=== PATIENT | male | born 1960 | race Caucasian/White ===

== ENCOUNTER 2020-01-14 10:10 | Outpatient (CLI) | payer BC, SELFPAY ==
--- NOTE | ~2020-01-14 | XR_ITS ---
EXAMINATION: HAND-FREDY ARTHRITIS 3+VIEWS DATE: 01/14/2020 10:28 INDICATION: Hand pain TECHNIQUE: Posteroanterior, lateral, and oblique views of the left and of the right hands as well as a ballcatchers view of both hands were obtained. COMPARISON: None. FINDINGS: There is moderate osteoarthritis at the left triscaphe, the first carpometacarpal, first metacarpopha langeal, and third metacarpophalangeal joints. Mild osteoarthritis is noted in multiple additional le ft interphalangeal joints. There is moderate osteoarthritis at the right triscaphe, first carpometaca rpal, first metacarpophalangeal, second metacarpophalangeal, and third metacarpophalangeal joints. Th ere is no fracture. The soft tissues are unremarkable. IMPRESSION: 1. Polyarticular osteoarthritis as detailed above without acute findings. Reviewed, dictated and finalized at location A.
== END 2020-01-14 10:11 | disposition home or self-care (01) ==
LOC: ANHIMG 10:16
PROVIDERS: PCP Internal Medicine; Visit Provider Surgery Plastic and Reconstructive Surgery
DX: M79.641 Pain in right hand (principal); M79.642 Pain in left hand; M19.042 Primary osteoarthritis, left hand; M19.041 Primary osteoarthritis, right hand
CPT/HCPCS: 73130

== ENCOUNTER 2020-02-11 07:59 | Outpatient (CLI) | payer BC, SELFPAY ==
[2020-02-11 08:43] LABS: Alanine Aminotransferase 36 U/L (4-50); Albumin Level 4.6 g/dL (3.5-5.1); Alkaline Phosphatase 69 U/L (38-126); Amylase 84 U/L (30-110); Aspartate Amino Transferase 37 U/L (17-59); Bilirubin,Total 0.7 mg/dL (0.2-1.3); Lipase 164 U/L (23-300)
== END 2020-02-11 08:00 | disposition home or self-care (01) ==
LOC: ANHSURGERY 08:02
PROVIDERS: PCP Internal Medicine; Visit Provider Surgery
DX: Z01.812 Encounter for preprocedural laboratory examination (principal); K80.20 Calculus of gallbladder without cholecystitis without obstruction
CPT/HCPCS: 36415; 80076; 82150; 83690; 86850; 86900; 86901

== ENCOUNTER 2020-02-11 09:49 | Outpatient (CLI) | payer BC, SELFPAY ==
--- NOTE | 2020-02-11 11:15 | NEURO_ITS ---
Patient Number: [id number] Impression: # Complains of numbness of both hands. # Right Carpal Tunnel Syndrome. # Bilateral ulnar neuropathy across the elbows, right more than left. # Normal needle/EMG exam. Nerve Conduction Studies Anti Sensory Summary Table Stim Site NR Peak (ms) P-T Amp (?V) Site1 Site2 Delta-P (ms) Dist (cm) Philip (m/s) Left Median Anti Sensory (2-3nd Digit) Wrist 3.6 22.4 Wrist 2-3nd Digit 3.6 14.0 39 Wrist 3.7 27.4 Wrist 2-3nd Digit 3.6 14.0 39 Right Median Anti Sensory (2-3nd Digit) Wrist 4.2 7.5 Wrist 2-3nd Digit 4.2 14.0 33 Wrist 4.2 10.3 Wrist 2-3nd Digit 4.2 14.0 33 Left Radial Anti Sensory (Base 1st Digit) Wrist 2.2 6.6 Wrist Base 1st Digit 2.2 0.0 Right Radial Anti Sensory (Base 1st Digit) Wrist 2.6 8.8 Wrist Base 1st Digit 2.6 0.0 Left Ulnar Anti Sensory (5th Digit) Wrist 2.8 5.7 Wrist 5th Digit 2.8 14.0 50 Right Ulnar Anti Sensory (5th Digit) Wrist 2.9 27.2 Wrist 5th Digit 2.9 14.0 48 Motor Summary Table Stim Site NR Onset (ms) O-P Amp (mV) Site1 Site2 Delta-0 (ms) Dist (cm) Philip (m/s) Left Median Motor (Abd Poll Brev) Wrist 3.8 3.6 Elbow Wrist 6.0 33.0 55 Elbow 9.8 3.4 Right Median Motor (Abd Poll Brev) Wrist 4.9 1.4 Elbow Wrist 5.8 32.0 55 Elbow 10.7 1.7 Left Ulnar Motor (Abd Dig Minimi) Wrist 3.1 5.0 A Elbow Wrist 6.8 32.0 47 A Elbow 9.9 4.9 B Elbow Wrist 4.2 25.0 60 B Elbow 7.3 5.0 Right Ulnar Motor (Abd Dig Minimi) Wrist 2.9 5.9 A Elbow Wrist 6.9 32.0 46 A Elbow 9.8 3.4 B Elbow Wrist 4.7 23.0 49 B Elbow 7.6 3.5 F Wave Studies NR F-Lat (ms) L-R F-Lat (ms) Left Median (Mrkrs) (Abd Poll Brev) 32.63 0.07 Right Median (Mrkrs) (Abd Poll Brev) 32.56 0.07 Left Ulnar (Mrkrs) (Abd Dig Min) 33.84 1.78 Right Ulnar (Mrkrs) (Abd Dig Min) 32.06 1.78 EMG Side Muscle Nerve Root Ins Act Fibs Amp Dur Recrt Comment Right 1stDorInt Ulnar C8-T1 Nml Nml Nml Nml Nml Right Ext Indicis Radial (Post Int) C7-8 Nml Nml Nml Nml Nml Right Ext Digitorum Radial (Post Int) C7-8 Nml Nml Nml Nml Nml Right BrachioRad Radial C5-6 Nml Nml Nml Nml Nml Right PronatorTeres Median C6-7 Nml Nml Nml Nml Nml Right Abd Poll Brev Median C8-T1 Nml Nml Nml Nml Nml Left 1stDorInt Ulnar C8-T1 Nml Nml Nml Nml Nml Left Ext Indicis Radial (Post Int) C7-8 Nml Nml Nml Nml Nml Left Ext Digitorum Radial (Post Int) C7-8 Nml Nml Nml Nml Nml Left BrachioRad Radial C5-6 Nml Nml Nml Nml Nml Left PronatorTeres Median C6-7 Nml Nml Nml Nml Nml Left Abd Poll Brev Median C8-T1 Nml Nml Nml Nml Nml Right ABD Dig Min Ulnar C8-T1 Nml Nml Nml Nml Nml Left ABD Dig Min Ulnar C8-T1 Nml Nml Nml Nml Nml MTDD
== END 2020-02-11 09:50 | disposition home or self-care (01) ==
PROVIDERS: PCP Internal Medicine; Visit Provider Surgery Plastic and Reconstructive Surgery
DX: R20.0 Anesthesia of skin (principal); G56.01 Carpal tunnel syndrome, right upper limb; G56.23 Lesion of ulnar nerve, bilateral upper limbs
CPT/HCPCS: 95886; 95911

== ENCOUNTER 2020-02-15 00:25 | Outpatient (CLI) | payer BC, SELFPAY ==
[2020-02-15 16:46] LABS: SARS-CoV-2 RNA PCR Negative
== END 2020-02-15 00:26 | disposition home or self-care (01) ==
LOC: ANHCOVIDDT 00:26
PROVIDERS: PCP Internal Medicine; Visit Provider Surgery
DX: Z01.818 Encounter for other preprocedural examination (principal); Z11.59 Encounter for screening for other viral diseases; K80.20 Calculus of gallbladder without cholecystitis without obstruction
CPT/HCPCS: 87635; C9803; U0003

== ENCOUNTER 2020-02-18 00:44 | Day surgery (SDC) | payer BC, SELFPAY ==
[2020-02-10 15:38] VITALS: BMI 45.3
[2020-02-18] VITALS (9 sets, daily range): BP systolic 133–150; BP diastolic 57–71; PULSE 62–80; RESP 14–21; TEMP 35.9–36.8; O2SAT 90–97
[2020-02-18] MEDS: LACTATED RINGERS 1,000 ML 30 ML IV CONT ×2 (11:01→12:48)
--- NOTE | 2020-02-18 11:23 | WPDANESEPPF ---
Anes - Initial Pre Proc Eval Procedure: Operation Date: 02/18/20 12:30 Proposed Procedures p Laparoscopic Cholecystectomy, Possible Open - Catalino Coates DO Date/Time: 02/18/20 11:23 Surgeon: Catalino Coates DO Pre Op Diagnosis: symptomatic cholelithiasis Patient Data Age: 59 Gender: M Height: 5 ft 11 in Weight: 146.5 kg Allergies Allergy/AdvReac Type Severity Reaction Status Date / Time bismuth subsalicylate Allergy Intermediate Rash Verified 02/18/20 10:44 NSAIDS (Non-Steroidal Allergy Intermediate Rash Verified 02/18/20 10:44 Anti-Inflamma aspirin Allergy Unknown Hives Verified 02/18/20 10:44 codeine Allergy Unknown Hives Verified 02/18/20 10:44 Home Medications Medication Instructions Recorded Confirmed Type diclofenac sodium 75 mg 75 mg PO BID 12/03/19 02/18/20 History tablet,delayed release omeprazole 40 mg capsule,delayed 40 mg PO DAILY 12/03/19 02/18/20 History release tramadol 50 mg tablet 50 mg PO Q8H PRN #90 tablet 12/31/19 02/18/20 Rx lisinopril 20 mg PO DAILY 02/10/20 02/18/20 History temazepam 30 mg PO HS PRN 02/10/20 02/18/20 History Patient hx anesthesia problems: none Family hx anesthesia problems: none PMFSH Past Medical History Medical History Diabetes GERD (gastroesophageal reflux disease) High cholesterol HTN (hypertension) Surgical History Surgical History History of bunionectomy Family History Family History Father COPD (chronic obstructive pulmonary disease) Heart attack Mother Family history of elevated blood lipids Social History Social History Smoking status: Former smoker Alcohol intake: current Substance use: never 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 Questions were solicited and answers provided to the satisfaction of the patient/family/POA.
--- NOTE | 2020-02-18 11:32 | PM.IMHP ---
H&P: HPI History of Present Illness Chief complaint: symptomatic cholelithiasis Narrative: Cristóbal Hernandez is a 59 year old male who presents with intermittent RUQ pain for the past 6-8 months. He has had a couple severe attacks of pain. Prior CT and u/s showed evidence of cholelithiasis. He now presents for elective lap ashly. 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 Gender identity (if verbalized by the patient): Male Meds Home Medications and Allergies Home Medications Medication Instructions Recorded Confirmed Type diclofenac sodium 75 mg 75 mg PO BID 12/03/19 02/18/20 History tablet,delayed release omeprazole 40 mg capsule,delayed 40 mg PO DAILY 12/03/19 02/18/20 History release tramadol 50 mg tablet 50 mg PO Q8H PRN #90 tablet 12/31/19 02/18/20 Rx lisinopril 20 mg PO DAILY 02/10/20 02/18/20 History temazepam 30 mg PO HS PRN 02/10/20 02/18/20 History Allergies Allergy/AdvReac Type Severity Reaction Status Date / Time bismuth subsalicylate Allergy Intermediate Rash Verified 02/18/20 10:44 NSAIDS (Non-Steroidal Allergy Intermediate Rash Verified 02/18/20 10:44 Anti-Inflamma aspirin Allergy Unknown Hives Verified 02/18/20 10:44 codeine Allergy Unknown Hives Verified 02/18/20 10:44 Vital Signs Vital Signs - 24 hr 02/18/20 11:28 Temperature 36.8 C Pulse Rate 80 Respiratory Rate 18 Blood Pressure 133/57 L Pulse Oximetry 97 Exam Const: General: no acute distress and alert Orientation/consciousness: patient oriented x3 HENMT: Head: normocephalic and atraumatic Ears: hearing grossly normal bilaterally General nose exam: Normal nares present Mouth: Yes Normal oral and palatal mucosa present Eyes: Periorbital: periorbital findings normal Sclera: sclerae normal EOM: EOMs intact bilaterally Neck: Neck: normal visual inspection, no lymphadenopathy and trachea midline Chest: Chest palpation & inspection: normal inspection of the chest Resp: Effort & Inspection: normal respiratory effort Auscultation: clear to auscultation bilaterally Cardio: Jugular venous distension: no JVD Rate: regular rate Rhythm: regular rhythm Heart sounds: S1 normal heart sound present and S2 normal heart sound present Peripheral pulses: Peripheral pulses 2+ throughout GI: Inspection: normal to inspection GI Palp: Yes Soft to palpation, No Tenderness to palpation present (GI), No Guarding due to palpation present (GI) and No Rebound tenderness present Percussion: Yes normal to percussion Auscultation: normal bowel sounds : General: Yes no CVA tenderness Back/Spine/Pelvis: Back: no CVA tenderness Neuro: General: patient oriented x3, no focal motor deficits and CN's II-XI intact bilaterally Cognition (Neuro): normal cognition Speech: normal speech Motor exam (neuro): 5/5 motor strength present throughout Extrem: General: capillary refill normal and no clubbing, cyanosis or edema Assessment and Plan Assessment and plan (1) Symptomatic cholelithiasis: Code(s): K80.20 - Calculus of gallbladder without cholecystitis without obstruction Status: Acute Assessment and Plan: I have recom
[2020-02-18] MEDS: ceFAZolin 3 GM/D5W 100 ML 100 ML IVPB (11:37)
[2020-02-18] MEDS: BUPIVACAINE/EPINEPHRINE 0.5% 30 ML VIAL INFILTRATE (12:01)
--- NOTE | 2020-02-18 12:54 | PM.PROC ---
Procedure Note - Detailed Date of procedure: 02/18/20 Pre-op diagnosis: symptomatic cholelithiasis Post-op diagnosis: same Procedure performed: Laparoscopic Cholecystectomy Description of procedure: Procedure as well as risks, benefits, and alternatives were discussed with patient. Written consent was obtained and placed in chart prior to procedure. The patient was brought back to surgical suite. Patient was placed in supine position on operating table. Time-out was done to confirm patient and procedure. Patient was then intubated by the anesthesia department. Abdomen was prepped and draped in sterile fashion using chlorhexidine prep. 0.5% bupivacaine with epinephrine was infiltrated at each site of incision. A 5 millimeter incision was made near the umbilicus, and a 5 millimeter Optiview trocar was advanced through the abdominal layers under direct visualization. Once inside the abdominal cavity, carbon dioxide was insufflated to create a pneumoperitoneum. The camera was inserted and the abdomen was inspected. No immediate abnormalities were identified. The patient was placed in reverse Trendelenburg position and rotated slightly to the left. An 11 millimeter incision was made in the subxiphoid region, and an 11 millimeter trocar was inserted under direct visualization. Two 5 millimeter incisions were made in the right upper quadrant, and two 5 millimeter trocars were inserted under direct visualization. The gallbladder was identified and grasped at the fundus and retracted superiorly. It was then grasped at the infundibulum retracted laterally. Careful dissection around the neck of the gallbladder was performed using blunt dissection with a [place] grasper and hook electrocautery. The cystic duct was identified, and a window was created behind it. The cystic artery was also identified and a window was created behind it. The critical view of safety was identified, visualizing the cystic duct running directly into the neck of the gallbladder, and the cystic artery running directly into the wall of the gallbladder. A 5 millimeter clip revenue officer was then used to place 2 clips proximally and 1 clip distally on both the cystic duct and cystic artery. They were then both transected using endoscopic scissors. Once safely away from the jackelin hepatitis, the gallbladder was dissected free from the liver bed using hook electrocautery. Hemostasis was achieved along the way. The gallbladder was removed completely and then removed through the subxiphoid port. The liver bed was then inspected. Hemostasis appeared adequate, and our clips appeared secure. The area was gently irrigated with sterile saline. No other abnormalities were seen. The patient was flattened out in bed, and 1 final inspection was made around the abdominal cavity. The subxiphoid port was removed, and a Dante Chacho cone was used to approximate the fascia with an 0-Vicryl simple interrupted suture. The remaining ports were then removed under direct visualization, the camera was removed, and the pneumoperitoneum was released. The skin of the incisions was approximated using 4-0 Monocryl subcuticular sutures. Exofin glue was applied on top. The patient was then awakened from anesthesia, extubated, and transferred to recovery. Anesthesia: GETA and local (0.5% bupivicaine with epi) Surgeon: Catalino Coates DO Estimated blood loss (mL): 10 Drains: No Packing: No Pathology: yes Complications: No immediate complications Condition: stable (Patient tolerated procedure well, and is currently resting comfortably in recovery.) Disposition: same day Findings: Cristóbal is a 59 y/o male who presents with upper abdominal pain. He reports experiencing 3 episodes of gallbladder attacks within the last 8 months or so. He states his pain is mostly across his upper abdomen and epigastric area. He presented to [facility] ER on 11/21/19 with severe abdominal pain and nausea. Labs were drawn and showed a normal WBC.
== END 2020-02-18 14:52 | disposition home or self-care (01) ==
PROVIDERS: PCP Internal Medicine; Visit Provider Surgery
PROC: 0FT44ZZ Resection of Gallbladder, Percutaneous Endoscopic Approach (ICD-10-PCS; CPT 47562; principal; 2020-02-18 12:30)
DX: K81.1 Chronic cholecystitis (principal); I10 Essential (primary) hypertension; E78.00 Pure hypercholesterolemia, unspecified; E11.9 Type 2 diabetes mellitus without complications; K21.9 Gastro-esophageal reflux disease without esophagitis; E66.01 Morbid (severe) obesity due to excess calories; Z68.42 Body mass index [BMI] 45.0-49.9, adult
CPT/HCPCS: 47562; 88304; J0131; J0690; J1100; J2250; J2405; J2704; J2710; J3010; J7030; J7120

== ENCOUNTER → 2021-09-21 02:27 | Outpatient (CLI) | payer BC, SELFPAY ==
[2021-09-21 18:03] LABS: Influenza Control Positive
[2021-09-22 03:58] LABS: SARS-CoV-2 RNA PCR Negative
== END ==
PROVIDERS: PCP Internal Medicine; Visit Provider Nurse Practitioner
DX: R68.89 Other general symptoms and signs (principal); Z20.822 Contact with and (suspected) exposure to COVID-19
CPT/HCPCS: 87804; C9803; U0003; U0005

== ENCOUNTER 2024-07-30 00:54 | Day surgery (SDC) | payer OTHER, SELFPAY ==
[2024-07-23 10:36] VITALS: BMI 42.7
[2024-07-30 09:28] VITALS: BP 149/82; PULSE 73; RESP 18; TEMP 36.1; O2SAT 97
[2024-07-30] MEDS: LACTATED RINGERS 1,000 ML 150 ML IV CONT (09:38)
--- NOTE | 2024-07-30 09:41 | WPDANESEPPF ---
Anes - Initial Pre Proc Eval Procedure: Operation Date: 07/30/24 10:30 Proposed Procedures p Screening Colonoscopy - Stan Velasco MD Date/Time: 07/30/24 09:41 Surgeon: Stan Velasco MD Pre Op Diagnosis: neoplasm screening Patient Data Age: 64 Gender: M Height: 1.78 m Weight: 132 kg Last Vital Signs Temp 36.1 C L 07/30/24 09:28 Pulse 73 07/30/24 09:28 Resp 18 07/30/24 09:28 BP 149/82 H 07/30/24 09:28 Pulse Ox 97 07/30/24 09:28 O2 Del Method Room Air 07/30/24 09:28 Allergies Allergy/AdvReac Type Severity Reaction Status Date / Time aspirin Allergy Severe Hives Verified 07/30/24 09:27 codeine Allergy Severe Hives Verified 07/30/24 09:27 Home Medications Medication Instructions Recorded Confirmed Type icosapent ethyl 1 gram capsule 2 g PO BID #360 caps 02/02/22 07/30/24 Rx (Vascepa) lisinopril 20 mg tablet See Rx Instructions .Route 09/27/23 07/30/24 Rx .COMPLEX #90 tabs temazepam 30 mg capsule 30 mg PO QHS PRN sleep #30 caps 01/12/24 07/30/24 Rx fenofibrate nanocrystallized 145 145 mg PO DAILY #90 tabs 06/24/24 07/30/24 Rx mg tablet omeprazole 40 mg capsule,delayed See Rx Instructions .Route 06/24/24 07/30/24 Rx release .COMPLEX #90 caps montelukast 10 mg tablet 10 mg PO DAILY #90 tabs 07/01/24 07/30/24 Rx (Singulair) celecoxib 200 mg capsule See Rx Instructions .Route 07/15/24 07/30/24 Rx .COMPLEX #60 caps Patient hx anesthesia problems: none Family hx anesthesia problems: none Results Review: All pre-operative results and documents have been reviewed as part of the pre-operative evaluation. [facility] Past Medical History Medical History (Updated 07/29/24 @ 14:06 by Berny Orozco DO) BMI 45.0-49.9, adult Degenerative arthritis of knee, bilateral Diabetes GERD (gastroesophageal reflux disease) High cholesterol HTN (hypertension) GER (obstructive sleep apnea) Surgical History Surgical History History of bunionectomy Hx laparoscopic cholecystectomy 02/18/20 Family History Family History Father COPD (chronic obstructive pulmonary disease) Heart attack Mother Family history of elevated blood lipids Social History Social History Smoking packs per day: 2 Smoking cigarettes per day: 40.0 Years smoked: 29 Smoking pack-years: 58.00 Smoking status: Former smoker Tobacco type: cigarettes Second hand tobacco smoke exposure: Yes Smoking end date: 04/04/01 Alcohol intake: current Drinks per week: 4 Alcohol use details: beer Substance use: current Substance use type: marijuana Lack of Transportation: No Lack of Food: Never True Current Housing: I Have Housing Concerned About Future Housing: No Difficulty Paying Gas/Electric Bills: No Difficulty Paying for Meds: No Currently Unemployed: No Education: High School Diploma/GED Difficulty w/ Childcare or Family Care: No Living arrangements: with family Occupation/Education: occupation 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 Informed Consent: The patient's anesthetic plan and its attendant risks and benefits were discussed with the patient/family/POA. Questions were solicited and answers provided to the satisfaction of the patient/family/POA.
--- NOTE | 2024-07-30 10:03 | PM.HPGS ---
History of Present Illness History of Present Illness Consent: Risks, benefits, and alternatives have been discussed and questions answered. Patient agrees to proceed with procedure. Chief complaint: neoplasm screening Narrative: Cristóbal Hernandez is a 64 year old male here for screening colonoscopy, last one years ago Review of Systems Review of Systems: All systems reviewed & are unremarkable except as noted in HPI and below PMFSH Past Medical History Medical History (Updated 07/29/24 @ 14:06 by Berny Orozco DO) BMI 45.0-49.9, adult Degenerative arthritis of knee, bilateral Diabetes GERD (gastroesophageal reflux disease) High cholesterol HTN (hypertension) GER (obstructive sleep apnea) Surgical History Surgical History History of bunionectomy Hx laparoscopic cholecystectomy 02/18/20 Family History Family History Father COPD (chronic obstructive pulmonary disease) Heart attack Mother Family history of elevated blood lipids Social History Social History Smoking packs per day: 2 Smoking cigarettes per day: 40.0 Years smoked: 29 Smoking pack-years: 58.00 Smoking status: Former smoker Tobacco type: cigarettes Second hand tobacco smoke exposure: Yes Smoking end date: 04/04/01 Alcohol intake: current Drinks per week: 4 Alcohol use details: beer Substance use: current Substance use type: marijuana Lack of Transportation: No Lack of Food: Never True Current Housing: I Have Housing Concerned About Future Housing: No Difficulty Paying Gas/Electric Bills: No Difficulty Paying for Meds: No Currently Unemployed: No Education: High School Diploma/GED Difficulty w/ Childcare or Family Care: No Living arrangements: with family Occupation/Education: occupation 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 Gender identity (if verbalized by the patient): Male Spiritual care concerns: No Meds Home Medications and Allergies Home Medications Medication Instructions Recorded Confirmed Type icosapent ethyl 1 gram capsule 2 g PO BID #360 caps 02/02/22 07/30/24 Rx (Vascepa) lisinopril 20 mg tablet See Rx Instructions .Route 09/27/23 07/30/24 Rx .COMPLEX #90 tabs temazepam 30 mg capsule 30 mg PO QHS PRN sleep #30 caps 01/12/24 07/30/24 Rx fenofibrate nanocrystallized 145 145 mg PO DAILY #90 tabs 06/24/24 07/30/24 Rx mg tablet omeprazole 40 mg capsule,delayed See Rx Instructions .Route 06/24/24 07/30/24 Rx release .COMPLEX #90 caps montelukast 10 mg tablet 10 mg PO DAILY #90 tabs 07/01/24 07/30/24 Rx (Singulair) celecoxib 200 mg capsule See Rx Instructions .Route 07/15/24 07/30/24 Rx .COMPLEX #60 caps Allergies Allergy/AdvReac Type Severity Reaction Status Date / Time aspirin Allergy Severe Hives Verified 07/30/24 09:27 codeine Allergy Severe Hives Verified 07/30/24 09:27 Vital Signs Vital Signs - 24 hr 07/30/24 09:28 Temperature 97 F L Pulse Rate 73 Respiratory Rate 18 Blood Pressure 149/82 H Pulse Oximetry 97 Oxygen Delivery Room Air Exam Const: General: comfortable and no acute distress HENMT: Face/Nose/Sinus: Normal nares present Eyes: General: appearance normal, both eyes and all related structures Neck: Neck: no JVD Resp: Auscultation: clear to auscultation bilaterally Cardio: Rate: regular rate Rhythm: regular rhythm GI: Inspection: non-distended GI Palp: Yes Soft to palpation Skin: General skin exam: normal color Neuro: General: gait normal Speech: normal speech Extrem: General: normal to inspection Psych: Mental Status: mental status grossly normal Assessment and Plan Assessment and plan (1) Colon cancer screening: Code(s): Z12.11 - Encounter for screening for malignant neoplasm of colon Status: Acute Assessment and Plan: colonoscopy
[2024-07-30 10:29] VITALS: BP 163/95; PULSE 80; RESP 20; O2SAT 97
[2024-07-30 10:39] VITALS: BP 120/70; PULSE 75; RESP 19; O2SAT 100
[2024-07-30 10:49] VITALS: BP 135/81; PULSE 71; RESP 21; O2SAT 100
== END 2024-07-30 10:58 | disposition home or self-care (01) ==
PROVIDERS: PCP Family Medicine; Visit Provider Internal Medicine Gastroenterology
PROC: 0DJD8ZZ Inspection of Lower Intestinal Tract, Via Natural or Artificial Opening Endoscopic (ICD-10-PCS; CPT 45378; principal; 2024-07-30 10:30)
DX: Z12.11 Encounter for screening for malignant neoplasm of colon (principal); D12.3 Benign neoplasm of transverse colon; D12.4 Benign neoplasm of descending colon; K63.5 Polyp of colon; K64.8 Other hemorrhoids; I10 Essential (primary) hypertension; E78.00 Pure hypercholesterolemia, unspecified; G47.33 Obstructive sleep apnea (adult) (pediatric); K21.9 Gastro-esophageal reflux disease without esophagitis; Z87.891 Personal history of nicotine dependence; F12.90 Cannabis use, unspecified, uncomplicated; E66.01 Morbid (severe) obesity due to excess calories; Z68.41 Body mass index [BMI] 40.0-44.9, adult
CPT/HCPCS: 45385; 88305; J2003; J2704; J7120